=== PATIENT | female | born 1985 | race Two or more races ===

== ENCOUNTER 2018-11-06 19:44 | Emergency (ER) | payer OTHER ==
--- NOTE | 2018-11-06 20:27 | ED Physician Documentation ---
History of Present Illness - Stated complaint Stated Complaint: FEVER,CHILLS - Chief complaint Chief Complaint: Fever - History obtained from History obtained from: Patient - Additonal information Additional information: Patient is a 33-year-old female 7 days from vaginal presenting with fever and chills. Patient reports that she had felt chills prior to her giving , as well as days following. However, fever was first documented last night. Patient does note that her was complicated by gestational hypertension and concern for preeclampsia. Patient delivered at 39 weeks. Patient reports that she did have episiotomy. Patient denies headache, shortness of breath, productive cough, chest pain, abdominal pain, nausea, vomiting, urinary changes or breast pain/skin changes. Patient also had epidural and denies any complications such as back pain or wound infection. Patient also denies any significant vaginal pain or other pelvic pain, as well as any increas e in vaginal bleeding. Patient states that vaginal bleeding has decreased appropriately. Patient does report mild persistent foot swelling that she had not present during her and shortly thereafter. She also states that she was suffering from constipation over the past week or so and manually disimpacted herself with a gloved hand yesterday and subsequently has had normal bowel movement. No other improving or worsening factors noted. Review of Systems Constitutional: reports: Fever, Chills Cardiac: denies: Chest pain / pressure Respiratory: denies: Dyspnea, Cough GI: denies: Abdominal Pain, Nausea, Vomiting, Constipation, Diarrhea : denies: Dysuria, Vaginal bleeding Skin: denies: Rash Musculoskeletal: denies: Neck pain, Back pain, Extremity pain PD PAST MEDICAL HISTORY - Past Medical History Past Medical History: No Cardiovascular: None Respiratory: None Neuro: None Endocrine/Autoimmune: None GI: None CARDIOVASCULAR OPERATING ROOM NURSE: None : None HEENT: None Psych: None Musculoskeletal: None Derm: None - Past Surgical History Past Surgical History: No - Present Medications Home Medications: Ambulatory Orders Medication Instructions Recorded Confirmed Dicloxacillin [Dynapen] 500 mg PO Q6H 14 Days capsule 11/06/18 - Allergies Allergies/Adverse Reactions: Allergies Allergy/AdvReac Type Severity Reaction Status Date / Time No Known Drug Allergies Allergy Verified 11/06/18 20:00 - Social History Does the pt smoke?: Yes Smoking Status: Current every day smoker Does the pt drink ETOH?: No Does the pt have substance abuse?: No - Immunizations Immunizations are current?: Yes - POLST Patient has POLST: No PD ED PE NORMAL - Vitals Vital signs reviewed: Yes - General General: Alert and oriented X 3, No acute distress, Well developed/nourished - HEENT HEENT: Atraumatic, Moist mucous membranes, Pharynx benign - Neck Neck: Supple, no meningeal sign, No bony TTP - Cardiac Cardiac: RRR, No murmur - Respiratory Respiratory: No respiratory distress, Clear bilaterally - Abdomen Abdomen: Normal bowel sounds, Soft, Non tender, Non distended - Back Back: No spinal TTP - Derm Derm: Normal color, Warm and dry, No rash - Extremities Extremities: No deformity, No tenderness to palpate. No: No edema (Mild non pitting edema to feet bilaterally) - Psych Psych: Normal mood, Normal affect Results - Vitals Vitals: Vital Signs - 24 hr 11/06/18 11/06/18 11/06/18 19:55 20:16 21:30 Temperature 39.0 C H 39.4 C H 38.0 C H Heart Rate 120 H Respiratory 18 Rate Blood Pressure 141/84 H O2 Saturation 100 11/06/18 22:03 Temperature 37.1 C Heart Rate 94 Respiratory 18 Rate Blood Pressure 115/68 O2 Saturation 100 Oxygen O2 Source Room air - Labs Labs: Laboratory Tests 11/06/18 11/06/18 11/06/18 20:25 20:25 20:25 WBC 11.1 H RBC 2.79 L Hgb 8.3 L Hct 25.7 L MCV 92.1 MCH 29.7 MCHC 32.3 RDW 14.9 Plt Count 478 H MPV 9.2 Neut # (Auto) 9.5 H Lymph # (Auto) 0.8 L [place] # (Auto) 0.6 Eos # (Auto) 0.1 Baso # (Auto) 0.0 Absolute Nucleated RBC 0.03 Nucleated RBC % 0.3 PT 13.0 H INR 1.2 APTT 28.4 Sodium 140 Potassium 3.6 Chloride 105 Carbon Dioxide 21 Anion Gap 14.0 H BUN 15 Creatinine 0.7 Estimated GFR (MDRD) 95 Glucose 120 H Lactic Acid Calcium 9.0 Total Bilirubin 0.5 AST 24 ALT 27 Alkaline Phosphatase 87 Total Protein 7.3 Albumin 3.3 Globulin 4.0 Albumin/Globulin Ratio 0.8 L Lipase 27 Urine Color Urine Clarity Urine pH Ur Specific [place] Urine Protein Urine Glucose (UA) Urine Ketones Urine Occult Blood Urine Nitrite Urine Bilirubin Urine Urobilinogen Ur Leukocyte Esterase Urine RBC Urine WBC Ur Squamous Epith Cells Urine Bacteria Ur Microscopic Review Urine Culture Comments 11/06/18 11/06/18 20:25 20:47 WBC RBC Hgb Hct MCV MCH MCHC RDW Plt Count MPV Neut # (Auto) Lymph # (Auto) [place] # (Auto) Eos # (Auto) Baso # (Auto) Absolute Nucleated RBC Nucleated RBC % PT INR APTT Sodium Potassium Chloride Carbon Dioxide Anion Gap BUN Creatinine Estimated GFR (MDRD) Glucose Lactic Acid 1.8 Calcium Total Bilirubin AST ALT Alkaline Phosphatase Total Protein Albumin Globulin Albumin/Globulin Ratio Lipase Urine Color YELLOW Urine Clarity CLEAR Urine pH 5.5 Ur Specific [place] <=1.005 Urine Protein NEGATIVE Urine Glucose (UA) NEGATIVE Urine Ketones NEGATIVE Urine Occult Blood SMALL H Urine Nitrite NEGATIVE Urine Bilirubin NEGATIVE Urine Urobilinogen 0.2 (NORMAL) Ur Leukocyte Esterase TRACE H Urine RBC 0-5 Urine WBC 0-3 Ur Squamous Epith Cells NONE SEEN Urine Bacteria None Seen Ur Microscopic Review INDICATED Urine Culture Comments Cancelled PD MEDICAL DECISION MAKING - ED course Complexity details: reviewed results, re-evaluated patient, considered differential, d/w patient, d/w family, d/w sap solution manager consultant ED course: Patient is 1 week vaginal delivery presenting with fever and chills without specific other complaints. Patient did have epidural but denies symptoms that would raise high suspicion for encephalitis, meningitis, epidural abscess. Epidural injection site unremarkable on exam. Patient also had episiotomy, but denies new pelvic or vaginal pain and vaginal bleeding has nearly subsided. Lower suspicion for cellulitis, abscess, or other infection involving the episiotomy site or endometritis, although considered. Patient denies complaints would raise high suspicion for UTI, pneumonia, renal disease, or other intra-abdominal pathology, but again considered. Patient is breast- feeding and has had no issues with such breasts do not reflect evidence of inf ection or mastitis. Do not find evidence of HELLP syndrome, DIC, or other acute complication related to the or period this time.Blood cultures, as well as lab work and urinalysis obtained. Urine culture also ordered. Patient started on fluid bolus as well as given 1 g of Tylenol given concern for sepsis and fever of unknown source.Screening lab work returned relatively unremarkable with only extremely mild leukocytosis and no elevation of lactic acid. H&H decreased, but as expected with recent vaginal delivery and patient had noted she lost a larger amount of blood. Do not feel this is related to today's complaints. Remainder of lab work relatively unremarkable. Urinalysis did have presence of leukocyte esterase only, but no obvious signs of infection. Empiric antibiotics of Rocephin given. Will be vitally indicated appropriate decrease in heart rate and effervescence. Contacted BUSINESS COORDINATOR on-call who evaluated patient in the ED.BUSINESS COORDINATOR for patient was experiencing mastitis and requested Dicloxacillin to be given in the ED.BUSINESS COORDINATOR otherwise feels patient is appropriate to discharge home with close follow-up tomorrow. Patient amenable to this plan. Departure - Departure Disposition: 01 Home, Self Care Clinical Impression: Mastitis Condition: Good Instructions: ED Breast Infec Follow-Up: your,doctor [Other] - Tomorrow Prescriptions: Dicloxacillin [Dynapen] 500 mg PO Q6H 14 Days capsule Comments: Please take antibiotics as prescribed. Please follow-up with your BUSINESS COORDINATOR provider tomorrow. May continue breast-feeding. Recommend use of Tylenol only for fever control. Please return to ED sooner if expands worsening symptoms or have other concerns.
[2018-11-06] MEDS ORDERED: SODIUM CHLORIDE 0.9% 2,000 ML IV ONE (20:28)
[2018-11-06] MEDS ORDERED: ACETAMINOPHEN 1,000 MG/100 ML 100 ML IV STA (20:28)
[2018-11-06 20:41] LABS: BASOPHILS % (AUTO) 0.3 %; EOSINOPHILS # (AUTO) 0.1 10^3/uL (0.0-0.7); EOSINOPHILS % (AUTO) 0.5 %; HGB - HEMOGLOBIN 8.3 g/dL (12.0-16.0); LYMPHOCYTES # (AUTO) 0.8 10^3/uL (1.5-3.5); LYMPHOCYTES % (AUTO) 7.6 %; MEAN CORPUSCULAR HEMOGLOBIN 29.7 pg (27.0-31.0); MEAN CORPUSCULAR HGB CONC 32.3 g/dL (32.0-36.0); MEAN CORPUSCULAR VOLUME 92.1 fL (81.0-99.0); MEAN PLATELET VOLUME 9.2 fL (7.9-10.8); MONOCYTES # (AUTO) 0.6 10^3/uL (0.0-1.0); MONOCYTES % (AUTO) 5.8 %; NEUTROPHILS # (AUTO) 9.5 10^3/uL (1.5-6.6); NEUTROPHILS % (AUTO) 85.1 %; PLT - PLATELET COUNT 478 10^3/uL (130-450); RED BLOOD COUNT 2.79 10^6/uL (4.20-5.40); RED CELL DISTRIBUTION WIDTH 14.9 % (12.0-15.0); WHITE BLOOD COUNT 11.1 x10^3/uL (4.8-10.8)
[2018-11-06 20:45] LABS: INR 1.2 (0.8-1.2)
[2018-11-06 20:53] LABS: PARTIAL THROMBOPLASTIN TIME 28.4 secs (24.9-33.3)
[2018-11-06 21:00] LABS: BILIRUBIN,URINE NEGATIVE (NEGATIVE); GLUCOSE, URINE (UA) NEGATIVE (NEGATIVE); KETONES,URINE (UA) NEGATIVE (NEGATIVE); LEUKOCYTE ESTERASE, URINE TRACE (NEGATIVE); NITRITE,URINE NEGATIVE (NEGATIVE); OCCULT BLOOD,URINE SMALL (NEGATIVE); PH,URINE 5.5 PH (5.0-7.5); PROTEIN,URINE NEGATIVE (NEGATIVE); UROBILINOGEN,URINE 0.2 (NORMAL) E.U./dL (NORMAL)
[2018-11-06 21:01] LABS: BILIRUBIN,TOTAL 0.5 mg/dL (0.2-1.0); CREATININE 0.7 mg/dL (0.4-1.0)
[2018-11-06 21:02] LABS: ALBUMIN 3.3 g/dL (3.2-5.5); ALBUMIN/GLOBULIN RATIO 0.8 (1.0-2.2); TOTAL PROTEIN 7.3 g/dL (6.7-8.2)
[2018-11-06 21:03] LABS: CLARITY,URINE CLEAR (CLEAR)
[2018-11-06] MEDS ORDERED: cefTRIAXone 2 GM in SODIUM CHLORIDE 0.9% MINIBAG 100 ML IV STA (21:09)
[2018-11-06 21:11] LABS: BACTERIA,URINE None Seen /HPF (None Seen); RBC,URINE 0-5 /HPF (0-5); SQUAMOUS EPITHELIAL CELL,UR NONE SEEN (<= Few)
[2018-11-06] MEDS ORDERED: DICLOXACILLIN 250 MG CAPSULE PO STA (23:14)
--- NOTE | 2018-11-06 23:30 | CONSULTATION NOTE ---
Referring Provider Name of Referring Provider:: Dr. Linda Barros Consult Date: 11/06/18 Chief Complaint - Chief Complaint Chief Complaint: Post fever History of Present Illness - Admitted From Admitted From:: ER - History Obtained From Records Reviewed: unavailable History obtained from: patient - History of Present Illness HPI Comment/Other: Ms Manzanares is a 33 yo GxP1 one week after vaginal delivery. was generally uncomplicated. She reports having elevated blood pressures at 36 weeks but was not diagnosed with GHTN or preeclampsia. She was noted to have BPs n the 180s/90s per 's report. She had an epidural for pain management. AROM at 8.5 cm and then rapid progression to delivery. She pushed for about 1 hour. Appears to have had a second degree laceration. PPH wth EBL of 1000 mL. FOB reports observing OB performing manual sweep of the uterus; patient cannot recall. Post course generally uncomplicated. Constipation relieved with manual disimpaction and enema. Reports lochia to be foul smelling but no abdominal pain. Decreased pelvic sensation with regard to urge to stool and void. and pumping. Has been experiencing chills and rigors. Febrile temp today to 104 degrees F. No back pain/dysuria/pelvic pain/N/V. Has tender mass in lateral aspect of right breast. Had received IVF, acetaminophen, and rocephin at this presentation. Had been febrile to 39C and tachycardic to the 120s at arrival, now resolving. Mld PUENTE behind her eyes and breast pain upon questioning. History - Past Medical History Cardiovascular: reports: None (PMH: unremarkable) Respiratory: reports: None Neuro: reports: None Endocrine/Autoimmune: reports: None GI: reports: None PRIVATE SECTOR EXECUTIVE: reports: None : reports: None HEENT: reports: None Psych: reports: None Musculoskeletal: reports: None Derm: reports: None MRSA Hx?: No - Past Surgical History General: reports: Other (vaginal laceration repair) - Family & Social History Social History Notes: Lives in [place] with , Preston, and son. [facility]. Originally from . No TREV, social EtOH prior to - Substance History Use: Uses substance without health or social issues: NONE - POLST Patient has POLST: No Meds/Allgy - Home Medications Home Medications: Ambulatory Orders Medication Instructions Recorded Confirmed Dicloxacillin [Dynapen] 500 mg PO Q6H 14 Days capsule 11/06/18 - Allergies Allergies/Adverse Reactions: Allergies Allergy/AdvReac Type Severity Reaction Status Date / Time No Known Drug Allergies Allergy Verified 11/06/18 20:00 Review of Systems - Other Findings Other Findings: As per HPI, remaining systems negative. Exam - Vital Signs Vital Signs: Vital Signs x48h Temp Pulse Resp BP Pulse Ox 11/06/18 22:03 98.8 F 94 18 115/68 100 11/06/18 21:30 100.4 F H 11/06/18 20:16 102.9 F H 11/06/18 19:55 102.2 F H 120 H 18 141/84 H 100 - Physical Exam General Appearance: positive: No acute distress Neck: positive: Nml inspection, Thyroid nml, Other (No LAD) Respiratory: positive: Chest non-tender, No respiratory distress Cardiovascular: positive: Regular rate & rhythm, Other (Tachycardia resolved by time of exam) Abdomen: positive: Non-tender, No distention, Other (Mild TTP to deep palp in RLQ, not reproducible on repeat exam. No fundal tenderness or suprapubc tenderness) Back: positive: Nml inspection, Other (No SVA tenderness) Skin: positive: Color nml Neurologic/Psychiatric: positive: Oriented x3, Mood/affect nml Comments/Other: PELVIC: Vaginal laceration repair without warmth, induration, tenderness. Sutures intact with normal inspection and minimal friability. Lochia wnl for volume and odor. No cervcical britton tenderness or uterine tenderness. BREAST: Lactating bilaterally. Non-fluctuant mass n lateral aspect of right br east, TTP. Moderately engorged ductal tissue bilaterally but no other areas of TTP. Non-erythematous. Mld warmth at area of tenderness. Conclusion/Plan - Diagnosis Diagnosis: Lacatational mastitis - Plan Plan: Mastitis: Rx for dicloxacilln 500 mg po Q6H for 14 days provided Continue and pumping, no restrictions for infant Reviewed import of draining the breast and use of warm compresses and massage Given a dose of rocephin on arrival and one dose of dicloxacillin prior to discharge Reviewed warning signs UA normal for lochia Exam benign for endometritis, pyelonephritis. Ovarian vein thrombosis less concerning given high suspicion for LM. Also, INR 1.2 CONSTIPATION: Discussed bowel regimen Recommend daily use of stool softeners with as needed use of laxatives Discussed avoidance of tachyphylaxis with regular use of laxatives Provided Rx for docusate and senna ANEMIA: HCT 25 after reported PPH -Recommend iron repletion once bowel regimen established FU with [facility] Thank you for including me in the care of this patient. Total time with patient was 30 min, of whch more than 50% was in face to face nurses' association counselor. - Lab Results Lab results reviewed: Yes Fish Bones: 11/06/18 20:25 11/06/18 20:25
[2018-11-06 23:44] VITALS: BP 119/94
== END 2018-11-07 00:09 | disposition home or self-care (01) ==
LOC: ED 19:44
DX: O91.23 Nonpurulent mastitis associated with lactation (principal); O99.335 Smoking (tobacco) complicating the puerperium
CPT/HCPCS: 36415; 80053; 81001; 83605; 83690; 85025; 85610; 85730; 87040; 87086; 96361; 96365; 96367; 99283; 99284; A9270; J0131; 81003

== ENCOUNTER 2019-03-24 16:59 | Emergency (ER) | payer OTHER ==
[2019-03-24 17:41] LABS: BASOPHILS # (AUTO) 0.1 10^3/uL (0.0-0.1); BASOPHILS % (AUTO) 0.6 %; EOSINOPHILS % (AUTO) 0.2 %; HGB - HEMOGLOBIN 14.3 g/dL (12.0-16.0); LYMPHOCYTES # (AUTO) 1.9 10^3/uL (1.5-3.5); LYMPHOCYTES % (AUTO) 22.9 %; MEAN CORPUSCULAR HEMOGLOBIN 27.7 pg (27.0-31.0); MEAN CORPUSCULAR VOLUME 83.8 fL (81.0-99.0); MEAN PLATELET VOLUME 9.7 fL (7.9-10.8); MONOCYTES # (AUTO) 0.6 10^3/uL (0.0-1.0); MONOCYTES % (AUTO) 6.6 %; NEUTROPHILS # (AUTO) 5.8 10^3/uL (1.5-6.6); NEUTROPHILS % (AUTO) 69.5 %; PLT - PLATELET COUNT 316 10^3/uL (130-450); RED BLOOD COUNT 5.17 10^6/uL (4.20-5.40); RED CELL DISTRIBUTION WIDTH 14.8 % (12.0-15.0); WHITE BLOOD COUNT 8.3 x10^3/uL (4.8-10.8)
[2019-03-24 17:45] LABS: BILIRUBIN,URINE NEGATIVE (NEGATIVE); GLUCOSE, URINE (UA) NEGATIVE (NEGATIVE); KETONES,URINE (UA) NEGATIVE (NEGATIVE); LEUKOCYTE ESTERASE, URINE NEGATIVE (NEGATIVE); NITRITE,URINE NEGATIVE (NEGATIVE); OCCULT BLOOD,URINE NEGATIVE (NEGATIVE); PROTEIN,URINE NEGATIVE (NEGATIVE); UROBILINOGEN,URINE 0.2 (NORMAL) E.U./dL (NORMAL)
[2019-03-24 17:46] LABS: CLARITY,URINE CLEAR (CLEAR); HCG UR QUAL NEGATIVE
[2019-03-24 17:54] LABS: ALBUMIN 4.4 g/dL (3.2-5.5); ALBUMIN/GLOBULIN RATIO 1.2 (1.0-2.2); BILIRUBIN,TOTAL 0.7 mg/dL (0.2-1.0); CALCIUM 9.7 mg/dL (8.5-10.3); CREATININE 0.7 mg/dL (0.4-1.0)
[2019-03-24] MEDS ORDERED: ACETAMINOPHEN 325 MG TABLET PO STA (18:07)
--- NOTE | 2019-03-24 18:09 | ED Physician Documentation ---
History of Present Illness - Stated complaint Stated Complaint: LLQ ABD PX - Chief complaint Chief Complaint: Abd Pain - History obtained from History obtained from: Patient, Family - History of Present Illness Timing: How many days ago (2) Pain level max: 8 Pain level now: 4 Improved by: nothing Worsened by: nothing - Additonal information Additional information: L pelvic pain x 2 days. similar pain 1 month ago. no cause found. No vaginal bleeding or discharge.Patient is 5 months from a normal spontaneous vaginal delivery. She did have granulation tissue that was not healing correctly and had to be cauterized. She also had mastitis shortly after delivery. She states she has not restarted her menses yet. Review of Systems Constitutional: denies: Fever, Chills Nose: denies: Rhinorrhea / runny nose, Congestion Throat: denies: Sore throat Cardiac: denies: Chest pain / pressure Respiratory: denies: Cough GI: denies: Nausea, Vomiting, Diarrhea : denies: Dysuria, Frequency, Hesitancy, Unable to Void, Hematuria, Discharge, Vaginal bleeding, Now EGA Skin: denies: Rash Musculoskeletal: denies: Neck pain, Back pain Neurologic: denies: Headache PD PAST MEDICAL HISTORY - Past Medical History Cardiovascular: None (PMH: unremarkable) Respiratory: None Neuro: None Endocrine/Autoimmune: None GI: None EDUCATIONAL MANAGER: None : None HEENT: None Psych: None Musculoskeletal: None Derm: None - Past Surgical History Past Surgical History: No General: Other (vaginal laceration repair) - Present Medications Home Medications: Ambulatory Orders Medication Instructions Recorded Confirmed Dicloxacillin [Dynapen] 500 mg PO Q6H 14 Days capsule 11/06/18 Hydrocodone/Acetaminophen 1 - 2 each PO Q6H PRN #14 tablet 03/24/19 [Hydrocodon-Acetaminophen 5-325] - Allergies Allergies/Adverse Reactions: Allergies Allergy/AdvReac Type Severity Reaction Status Date / Time No Known Drug Allergies Allergy Verified 03/24/19 17:14 - Social History Does the pt smoke?: Yes Smoking Status: Current every day smoker Does the pt drink ETOH?: No Does the pt have substance abuse?: No - Immunizations Immunizations are current?: Yes - POLST Patient has POLST: No PD ED PE NORMAL - Vitals Vital signs reviewed: Yes - General General: Alert and oriented X 3, No acute distress, Well developed/nourished - HEENT HEENT: PERRL, Moist mucous membranes - Neck Neck: Supple, no meningeal sign - Cardiac Cardiac: RRR, Strong equal pulses - Respiratory Respiratory: No respiratory distress, Clear bilaterally - Abdomen Abdomen: Normal bowel sounds, Soft, Non tender, Non distended - Female Female : Pt declined - Back Back: No spinal TTP - Derm Derm: Warm and dry - Extremities Extremities: No edema - Neuro Neuro: Alert and oriented X 3 - Psych Psych: Normal mood, Normal affect Results - Vitals Vitals: Vital Signs - 24 hr 03/24/19 03/24/19 17:14 20:36 Temperature 36.6 C Heart Rate 80 76 Respiratory 16 16 Rate Blood Pressure 117/78 116/76 O2 Saturation 96 100 Oxygen O2 Source Room air - Labs Labs: Laboratory Tests 03/24/19 03/24/19 03/24/19 17:35 17:35 17:39 WBC 8.3 RBC 5.17 Hgb 14.3 Hct 43.3 MCV 83.8 MCH 27.7 MCHC 33.0 RDW 14.8 Plt Count 316 MPV 9.7 Neut # (Auto) 5.8 Lymph # (Auto) 1.9 [place] # (Auto) 0.6 Eos # (Auto) 0.0 Baso # (Auto) 0.1 Absolute Nucleated RBC 0.00 Nucleated RBC % 0.0 Sodium 142 Potassium 4.1 Chloride 105 Carbon Dioxide 28 Anion Gap 9.0 BUN 10 Creatinine 0.7 Estimated GFR (MDRD) 95 Glucose 103 H Calcium 9.7 Total Bilirubin 0.7 AST 17 ALT 16 Alkaline Phosphatase 64 Total Protein 8.0 Albumin 4.4 Globulin 3.6 Albumin/Globulin Ratio 1.2 Lipase 28 Urine Color LT. YELLOW Urine Clarity CLEAR Urine pH 8.0 H Ur Specific [place] 1.010 Urine Protein NEGATIVE Urine Glucose (UA) NEGATIVE Urine Ketones NEGATIVE Urine Occult Blood NEGATIVE Urine Nitrite NEGATIVE Urine Bilirubin NEGATIVE Urine Urobilinogen 0.2 (NORMAL) Ur Leukocyte Esterase NEGATIVE Ur Microscopic Review NOT INDICATED Urine Culture Comments NOT INDICATED Urine HCG, Qual 03/24/19 17:39 WBC RBC Hgb Hct MCV MCH MCHC RDW Plt Count MPV Neut # (Auto) Lymph # (Auto) [place] # (Auto) Eos # (Auto) Baso # (Auto) Absolute Nucleated RBC Nucleated RBC % Sodium Potassium Chloride Carbon Dioxide Anion Gap BUN Creatinine Estimated GFR (MDRD) Glucose Calcium Total Bilirubin AST ALT Alkaline Phosphatase Total Protein Albumin Globulin Albumin/Globulin Ratio Lipase Urine Color Urine Clarity Urine pH Ur Specific [place] 1.010 Urine Protein Urine Glucose (UA) Urine Ketones Urine Occult Blood Urine Nitrite Urine Bilirubin Urine Urobilinogen Ur Leukocyte Esterase Ur Microscopic Review Urine Culture Comments Urine HCG, Qual NEGATIVE - Rads (name of study) Pelvic ultrasound Radiology: Prelim report reviewed, EMP read contemporaneously, See rad report (. Uterus and bilateral ovaries appear within normal limits. 2. 3.8 cm cystic lesion in the left adnexal space without internal vascularity is of unclear etiology. This could reflect an exophytic left ovarian cyst or possibly paraovarian cyst. Correlation with prior studies if available suggested. Short interval follow-up ultrasound in 6 weeks could be obtained for reassessment. 3. No free pelvic fluid.. ) PD MEDICAL DECISION MAKING - ED course Complexity details: reviewed results, re-evaluated patient, considered differential, d/w patient ED course: Patient appears to have a left side cyst near her ovary. This may be the cause of her pain. Otherwise normal laboratory testing. She is very well-appearing, nontoxic. Afebrile. No evidence of ureteral stone. We will have her follow-up with her doctor for further care and a repeat ultrasound in 6 weeks. Patient counseled regarding signs and symptoms for which I believe and urgent re- evaluation would be necessary. Patient with good understanding of and agreement to plan and is comfortable going home at this time This document was made in part using voice recognition software. While efforts are made to proofread this document, sound alike and grammatical errors may occur. Departure - Departure Disposition: 01 Home, Self Care Clinical Impression: Ovarian cyst Qualifiers: Laterality: left Qualified Code(s): N83.202 - Unspecified ovarian cyst, left side Condition: Good Instructions: ED Cyst Ovarian Follow-Up: Rowena Solano MD [Primary Care Provider] - Within 1 week Prescriptions: Hydrocodone/Acetaminophen [Hydrocodon-Acetaminophen 5-325] 1 - 2 each PO Q6H PRN #14 tablet PRN Reason: pain Comments: You should have a repeat ultrasound in approximately 6 weeks for reassessment of the left cystic structure next year ovary. Return if you worsen. Follow-up with your doctor for further care. Do not drink alcohol or drive while on narcotic pain medicine. Note that many narcotic pain relievers also contain tylenol/acetaminophen. Please ensure that your total dose of acetaminophen from all sources does not exceed 3 grams (3000mg) per day. You may constipated on this medication, take a stool softener such as "Colace" twice a day while you are on it. Also recommend a [id number] laxative such as senna or MiraLAX any day that you do not have a bowel movement. If you received narcotic pain medication in the emergency department, do not drive or operate machinery for the next 24 hours. IMPRESSION: 1. Uterus and bilateral ovaries appear within normal limits. 2. 3.8 cm cystic lesion in the left adnexal space without internal vascularity is of unclear etiology. This could reflect an exophytic left ovarian cyst or possibly paraovarian cyst. Correlation with prior studies if available suggested. Short interval follow-up ultrasound in 6 weeks could be obtained for reassessment. 3. No free pelvic fluid.. Discharge Date/Time: 03/24/19 20:35
--- NOTE | 2019-03-24 19:52 | Ultrasound Report ---
Reason: pelvic pain Procedure Date: 03/24/2019 Accession Number: [id number] / [id number] Procedure: US - Pelvic w/Doppler Complete CPT Code: Final Report FULL RESULT: EXAM: PELVIC ULTRASOUND EXAM DATE: 03/24/2019 07:32 PM. CLINICAL HISTORY: Pelvic pain. COMPARISON: None. TECHNIQUE: Realtime transabdominal pelvic scan performed to identify the uterus and adnexa and as an overview of other pelvic structures, with static image documentation. Transvaginal imaging was not performed FINDINGS: Uterus: 8.4 x 3.2 x 5 cm, volume 73 cc. Anteverted position. Normal overall size and echotexture. Masses: None. Endometrium: 2.6 mm. Normal. Cervix: Unremarkable. Right Ovary: 2.5 x 1.3 x 1.9 cm, volume 3.2 cc. Normal echotexture and Doppler flow. Left Ovary: 2.7 x 1.9 x 1.8 cm, volume 4.8 cc. Normal echotexture and Doppler flow. 1.6 cm left ovarian functional cyst is seen. Free Fluid: None. Other: Additional 3.8 x 2.9 x 2.8 cm cystic structure in the left adnexal space of unclear etiology. No internal vascularity is seen within this cystic lesion. IMPRESSION: 1. Uterus and bilateral ovaries appear within normal limits. 2. 3.8 cm cystic lesion in the left adnexal space without internal vascularity is of unclear etiology. This could reflect an exophytic left ovarian cyst or possibly paraovarian cyst. Correlation with prior studies if available suggested. Short interval follow-up ultrasound in 6 weeks could be obtained for reassessment. 3. No free pelvic fluid.. RADIA
[2019-03-24 20:39] VITALS: BP 116/76
== END 2019-03-24 20:35 | disposition home or self-care (01) ==
LOC: ED 16:59
DX: N83.202 Unspecified ovarian cyst, left side (principal); F17.200 Nicotine dependence, unspecified, uncomplicated
CPT/HCPCS: 36415; 76856; 80053; 81003; 81025; 83690; 85025; 93975; 99284; A9270; 81001; 87086

== ENCOUNTER 2019-07-21 13:18 | Emergency (ER) | payer OTHER ==
[2019-07-21 13:49] LABS: BILIRUBIN,URINE NEGATIVE (NEGATIVE); GLUCOSE, URINE (UA) NEGATIVE (NEGATIVE); KETONES,URINE (UA) NEGATIVE (NEGATIVE); LEUKOCYTE ESTERASE, URINE NEGATIVE (NEGATIVE); NITRITE,URINE NEGATIVE (NEGATIVE); OCCULT BLOOD,URINE NEGATIVE (NEGATIVE); PROTEIN,URINE NEGATIVE (NEGATIVE); UROBILINOGEN,URINE 0.2 (NORMAL) E.U./dL (NORMAL)
[2019-07-21 13:51] LABS: CLARITY,URINE CLEAR (CLEAR); HCG UR QUAL NEGATIVE
[2019-07-21] MEDS ORDERED: IBUPROFEN 800 MG TABLET PO STA (13:54)
--- NOTE | 2019-07-21 13:58 | ED Physician Documentation ---
History of Present Illness - Stated complaint Stated Complaint: FEMALE - Chief complaint Chief Complaint: Abd Pain - History obtained from History obtained from: Patient - History of Present Illness Timing: Other (This is a very pleasant 34-year-old woman who is about 8 months . In late she started to have episodic severe rectal pain sometimes associated with defecation, sometimes not. Since then she has had it about monthly. Last maybe 24 hours at a time during which she has several spasms of the severe pain that stop her in her tracks. She is having this now and this is her main presenting complaint, but unlike the previous episodes she has had it for 3 days now as opposed to her usual single day. She also has ongoing pelvic pressure, has a known 3.5 cm left ovarian cyst and is worried that it might of ruptured. She denies possibility of , dizziness, fever, vaginal discharge, fatigue. 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 07/21/19 - Allergies Allergies/Adverse Reactions: Allergies Allergy/AdvReac Type Severity Reaction Status Date / Time No Known Drug Allergies Allergy Verified 07/21/19 13:27 - Social History Does the pt smoke?: Yes Smoking Status: Current every day smoker Does the pt drink ETOH?: No Does the pt have substance abuse?: No - Immunizations Immunizations are current?: Yes - POLST Patient has POLST: No PD ED PE NORMAL - Vitals Vital signs reviewed: Yes - General General: Alert and oriented X 3, No acute distress - Abdomen Abdomen: Soft, Non tender - Female Female : Other (Digital rectal exam done with Tiffanie WORRELL present and chaperoning. She is a little skin tag on the left side, but it is not tender. No fissures or internal or external hemorrhoids. No gross blood or mass.) - Neuro Neuro: Alert and oriented X 3, Normal speech Results - Vitals Vitals: Vital Signs - 24 hr 07/21/19 07/21/19 13:27 16:05 Temperature 37.0 C Heart Rate 96 70 Respiratory 15 16 Rate Blood Pressure 119/75 119/86 H O2 Saturation 99 100 Oxygen O2 Source Room air - Labs Labs: Laboratory Tests 07/21/19 07/21/19 07/21/19 13:35 13:57 13:57 WBC 10.3 RBC 4.58 Hgb 13.5 Hct 40.5 MCV 88.4 MCH 29.5 MCHC 33.3 RDW 13.1 Plt Count 362 MPV 9.7 Neut # (Auto) 7.3 H Lymph # (Auto) 2.0 [place] # (Auto) 0.9 Eos # (Auto) 0.0 Baso # (Auto) 0.0 Absolute Nucleated RBC 0.00 Nucleated RBC % 0.0 Sodium 141 Potassium 3.7 Chloride 104 Carbon Dioxide 26 Anion Gap 11.0 BUN 12 Creatinine 0.7 Estimated GFR (MDRD) 95 Glucose 93 Calcium 9.6 Total Bilirubin 0.7 AST 14 ALT 13 Alkaline Phosphatase 51 Total Protein 8.4 H Albumin 4.3 Globulin 4.1 Albumin/Globulin Ratio 1.0 Lipase 23 Urine Color YELLOW Urine Clarity CLEAR Urine pH 6.0 Ur Specific Anna 1.025 Urine Protein NEGATIVE Urine Glucose (UA) NEGATIVE Urine Ketones NEGATIVE Urine Occult Blood NEGATIVE Urine Nitrite NEGATIVE Urine Bilirubin NEGATIVE Urine Urobilinogen 0.2 (NORMAL) Ur Leukocyte Esterase NEGATIVE Ur Microscopic Review NOT INDICATED Urine Culture Comments NOT INDICATED Urine HCG, Qual NEGATIVE - Rads (name of study) Pelvic sono Radiology: Final report received (see disch instructions) PD MEDICAL DECISION MAKING - ED course ED course: This is a very pleasant 34-year-old woman who has had ongoing intermittent proctalgia consistent with fugax. For this she is given Rectiv. Her physical examination there is normal. She also has left pelvic pressure, not severe pain and she only wanted ibuprofen for it. Over the course the last 4 months or so this complicated left ovarian cyst has increased in size slightly mandating close gynecologic follow-up. This was discussed extensively with the patient and she voices understanding. Departure - Departure Disposition: 01 Home, Self Care Clinical Impression: Proctalgia fugax, Complex cyst of left ovary Condition: Good Record reviewed to determine appropriate education?: Yes Instructions: ED Cyst Ovarian Prescriptions: Nitroglycerin [Rectiv] 1 inch RC BID PRN #1 oint...g. PRN Reason: Rectal Pain Comments: As discussed, on March 26, 2019 the cystic lesion in your left adnexa measured 3.8 x 2.9 x 2.8 cm. Today the complex solid and cystic lesion now measures 4.7 x 3.7 x 3.9 cm. 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 Potentially laparoscopy or other advanced imaging. Talk to her on Tuesday. Discharge Date/Time: 07/21/19 16:07
[2019-07-21 14:07] LABS: BASOPHILS % (AUTO) 0.4 %; EOSINOPHILS % (AUTO) 0.2 %; HGB - HEMOGLOBIN 13.5 g/dL (12.0-16.0); LYMPHOCYTES % (AUTO) 19.2 %; MEAN CORPUSCULAR HEMOGLOBIN 29.5 pg (27.0-31.0); MEAN CORPUSCULAR HGB CONC 33.3 g/dL (32.0-36.0); MEAN CORPUSCULAR VOLUME 88.4 fL (81.0-99.0); MEAN PLATELET VOLUME 9.7 fL (7.9-10.8); MONOCYTES # (AUTO) 0.9 10^3/uL (0.0-1.0); NEUTROPHILS # (AUTO) 7.3 10^3/uL (1.5-6.6); NEUTROPHILS % (AUTO) 70.8 %; PLT - PLATELET COUNT 362 10^3/uL (130-450); RED BLOOD COUNT 4.58 10^6/uL (4.20-5.40); RED CELL DISTRIBUTION WIDTH 13.1 % (12.0-15.0); WHITE BLOOD COUNT 10.3 x10^3/uL (4.8-10.8)
[2019-07-21 14:19] LABS: ALBUMIN 4.3 g/dL (3.2-5.5); BILIRUBIN,TOTAL 0.7 mg/dL (0.2-1.0); CALCIUM 9.6 mg/dL (8.5-10.3); CREATININE 0.7 mg/dL (0.4-1.0); TOTAL PROTEIN 8.4 g/dL (6.7-8.2)
--- NOTE | 2019-07-21 15:35 | Ultrasound Report ---
Reason: pelvic pain, L known cyst Procedure Date: 07/21/2019 Accession Number: [id number] / [id number] Procedure: US - Pelvic w/Transvag+Doppler Comp CPT Code: Final Report FULL RESULT: EXAM: PELVIC ULTRASOUND WITH DOPPLERS CLINICAL HISTORY: Pelvic pain, L known cyst. COMPARISON: PEL NON OB W/TV DOP 03/24/2019 7:01 PM TECHNIQUE: Realtime transabdominal imaging performed to identify the uterus and adnexa and as an overview of other pelvic structures, followed by transvaginal imaging for better assessment of the endometrium and adnexa, with static image documentation. Color flow imaging and Doppler spectral analysis was performed to evaluate blood flow to the ovaries given pelvic pain and clinical concern for ovarian torsion. FINDINGS: Uterus: 7.4 x 4.0 x 5.8 cm, volume 92 cc. Anteverted position. Normal overall size and echotexture. Masses: None. Endometrium: 6 mm. There is a tiny calcification. Otherwise normal. Cervix: Unremarkable. Right Ovary: 3.3 x 1.8 x 1.7 cm, volume 5 cc. Normal echotexture. Arterial and venous blood flow are present. PSV 6.3 cm/sec. RI 0.6. Adnexa are unremarkable. Left Ovary: 3.3 x 2.0 x 2.8 cm, volume 9.6 cc. Normal echotexture. Adjacent to the inferior aspect of the left ovary and likely attached to the ovary is a solid and cystic lesion measuring 4.7 x 2.7 x 3.8 cm. No vascularity within the solid component. Arterial and venous blood flow are present. PSV 9.2 cm/sec. RI 0.5. Free Fluid: Trace Other: None. IMPRESSION: 1. Complex left paraovarian solid and cystic lesion measures 4.7 x 3.7 x 3.9 cm. Follow-up ultrasound in 8-12 weeks recommended to evaluate for resolution. 2. No ovarian torsion. RADIA
[2019-07-21 16:06] VITALS: BP 119/86
== END 2019-07-21 16:07 | disposition home or self-care (01) ==
LOC: ED 13:18
DX: K59.4 Anal spasm (principal); N83.292 Other ovarian cyst, left side; F17.200 Nicotine dependence, unspecified, uncomplicated
CPT/HCPCS: 36415; 76830; 76856; 80053; 81003; 81025; 83690; 85025; 93975; 99283; A9270; 81001; 87086

== ENCOUNTER 2019-08-21 07:21 | Outpatient (CLI) | payer OTHER ==
[2019-08-21] MEDS ORDERED: GADOBUTROL 7.5 MMOL/7.5 ML VIAL ONE (07:40)
[2019-08-21] MEDS ORDERED: GADOBUTROL 7.5 MMOL/7.5 ML VIAL IVP ONE (08:38)
--- NOTE | 2019-08-21 13:50 | MRI Report ---
Reason: DISORDERS OF UTERUS Procedure Date: 08/21/2019 Accession Number: [id number] / [id number] Procedure: MRI - Pelvis W/WO CPT Code: Final Report FULL RESULT: EXAM: MR PELVIS WITH AND WITHOUT CONTRAST (MR FEMALE PELVIS) EXAM DATE: 08/21/2019 09:00 AM. CLINICAL HISTORY: Left adnexal cyst seen on ultrasound, increased in size. Please assess. COMPARISON: PEL NON OB W/TV DOP 07/21/2019 2:07 PM PEL NON OB W/TV DOP 03/24/2019 7:01 PM. TECHNIQUE: Multiplanar breath-hold T1, T2 and DWI sequences obtained through the pelvis on an MR scanner. Images obtained before and after administration of 6 cc of Gadavist intravenous contrast. FINDINGS: Reproductive Organs: Uterus: The uterus is anteverted and measures 6.8 x 3.7 x 6.3 cm with volume 82.4 cc. The endometrial stripe measures 4 mm. No uterine masses. Cervical mucosal contour is unremarkable. Right Ovary: The right ovary measures 2.8 x 1.7 x 2.5 cm. Normal follicles are present in the right ovary. Left Ovary: The left ovary measures 2.8 x 2.0 x 2.8 cm. Adjacent to the left ovary and slightly medial, seen best on axial image 19 series 501 is a T2 hyperintense 2.8 x 2.4 x 2.5 cm lesion with slight shading seen on the T2-weighted sequences although largely hyperintense on the T2 and T1-weighted precontrast images and on the T2-weighted sequences has an area of heterogeneity along its inferior aspect seen on image 13 series 601, although associated findings on the T1-weighted sequences. This area measures up to 1.3 cm. Postcontrast no clear evidence for focal enhancing mass or lesion is evident. This may be exophytic arising from the left ovary or represent a left paraovarian cystic lesion. Bowel: Included portions of the small bowel and colon are unremarkable. No pelvic free fluid. No pelvic adenopathy. Bladder: Urinary bladder is mildly to moderately distended and unremarkable. Other: Mild lumbar facet arthropathy. No other osseous abnormalities. IMPRESSION: 1. Left adnexal 2.8 x 2.4 x 2.5 cm cystic lesion measured on the recent ultrasound from 07/21/2019, 4.7 x 2.7 x 3.8 cm with the cystic component seen on the ultrasound measuring 2.8 x 3.2 x 3.2 cm which corresponds with the cystic lesion seen in the left adnexa on the current study. On the recent ultrasound the lesion was described as cystic and solid and measured on the ultrasound from 03/24/2019 measured 3.8 x 2.9 x 2.8 cm. The cystic lesion appears to be either exophytic or paraovarian along the left adnexa and favored to be paraovarian with features most likely representing an endometrioma, less likely hemorrhagic cyst. No enhancing septations or nodules are identified. Consider other follow-up pelvic ultrasound continued surveillance in 3 months and/or gynecological consultation. 2. Normal MR appearance of the uterus and right ovary. RADIA
== END 2019-08-21 07:22 | disposition home or self-care (01) ==
LOC: DI 07:21
PROVIDERS: ATTEND Obstetrics & Gynecology
DX: N85.8 Other specified noninflammatory disorders of uterus (principal)
CPT/HCPCS: 72197; A9585

== ENCOUNTER 2020-07-14 10:56 | Outpatient (CLI) | payer OTHER ==
--- NOTE | 2020-07-15 13:29 | Ultrasound Report ---
LIMITED ULTRASOUND OF RIGHT BREAST: 07/14/2020 CLINICAL: Patient returns today to evaluate a focal asymmetry in the right breast. Comparison is made to exam dated: 07/14/2020 mammogram - [facility]. Color flow and real-time ultrasound of the right breast 11 o'clock region were performed on the areas of interest. There is a benign 0.4 cm x 0.1 cm x 0.4 cm oval cyst in the right breast at 11 o'clock middle depth. This oval cyst is anechoic with a well-defined boundary and posterior acoustic enhancement. This co rrelates with mammography findings. Color flow imaging demonstrates that there is no vascularity pre sent. IMPRESSION: BENIGN There is no sonographic evidence of malignancy. The 0.4 cm x 0.1 cm x 0.4 cm oval cyst in the right breast is consistent with a simple cyst and is be nign. A screening mammogram in 3 years is recommended. This exam was interpreted at Station ID: [id number]. Electronically Signed By: Martinez Kelley M.D. ddp/:07/14/2020 13:57:31 Ultrasound BI-RADS: 2 Benign BI-RADS CATEGORY: (2) - 2 Mammogram [id number] 3 year screening LATERALITY: (B)
--- NOTE | 2020-07-15 13:29 | Ultrasound Report ---
LIMITED ULTRASOUND OF LEFT BREAST: 07/14/2020 CLINICAL: Occasional left breast pain. Comparison is made to exams dated: 07/14/2020 ultrasound and 07/14/2020 mammogram - [facility]. Color flow and real-time ultrasound of the left breast 1 o'clock and 8 o'clock regions were performe d on the areas of interest. There is a 0.6 cm x 0.3 cm x 0.6 cm oval mass with a circumscribed margin in the left breast at 3 o'c lock middle depth. This oval mass is hypoechoic with a well-defined boundary and posterior acoustic enhancement. This correlates as palpated. Color flow imaging demonstrates that there is no vascular ity present. IMPRESSION: PROBABLY BENIGN The 0.6 cm x 0.3 cm x 0.6 cm oval mass in the left breast has a differential diagnosis of a complicat ed cyst, a lymph node, or a fibroadenoma and is probably benign. A follow-up ultrasound in 6 months is recommended. There are no abnormalities seen in the left breast to correspond with the pain at 1 and 8 o'clock, ho wever, clinical followup is recommended. A follow-up ultrasound in 6 months is recommended to demonstrate stability. This exam was interpreted at Station ID: [id number]. Electronically Signed By: Martinez Kelley M.D. ddp/:07/14/2020 13:56:07 Ultrasound BI-RADS: 3 Probably benign BI-RADS CATEGORY: (3) - 3 Ultrasound [id number] 6 month follow-up LATERALITY: (B)
--- NOTE | 2020-07-15 13:29 | Mammography Report ---
BILATERAL DIGITAL DIAGNOSTIC MAMMOGRAM 3D/2D: 07/14/2020 CLINICAL: Diffuse left breast pain. Baseline exam. No prior exams were available for comparison. The tissue of both breasts is heterogeneously dense. T his may lower the sensitivity of mammography. There is an oval low density focal asymmetry with an indistinct and circumscribed margin in the right breast at 11 o'clock middle depth. No other significant masses, calcifications, or other findings are seen in either breast. IMPRESSION: INCOMPLETE: NEEDS ADDITIONAL IMAGING EVALUATION The oval low density focal asymmetry in the right breast is indeterminate. An ultrasound is recommen ded. There is no abnormality seen in the left breast to correspond with the palpable abnormality at 9 o'cl ock, however, ultrasound is recommended. There is no abnormality seen in the left breast to correspond with the pain at 8 o'clock, however, ul trasound is recommended. There is no abnormality seen in the left breast to correspond with the pain at 1 o'clock, however, ul trasound is recommended. Ultrasound will be performed immediately following the current exam. This exam was interpreted at Station ID: [id number]. NOTE: For mammograms, a report in lay terms will be sent to the patient. Approximately 15% of breast malignancies will not be visualized mammographically. In the management of a palpable breast mass, a negative mammogram must not discourage biopsy of a clinically suspicious lesion. Electronically Signed By: Martinez Kelley M.D. ddp/:07/14/2020 13:54:00 ACR BI-RADS Category 0: Incomplete 3340F PARENCHYMAL PATTERN: (D) - The breast(s) demonstrate(s) heterogeneously dense fibroglandular darby davalos. BI-RADS CATEGORY: (0) - 0 Ultrasound [id number] Immediate follow-up LATERALITY: (B)
== END 2020-07-14 10:57 | disposition home or self-care (01) ==
LOC: DI 10:56
PROVIDERS: ATTEND Student in an Organized Health Care Education/Training Program
DX: N64.4 Mastodynia (principal); N60.01 Solitary cyst of right breast

== ENCOUNTER 2023-12-15 11:44 | Emergency (ER) | payer OTHER ==
[2023-12-15 11:59] VITALS: O2SAT 100
--- NOTE | 2023-12-15 12:25 | ED Physician Documentation ---
PD HPI FEMALE - Stated complaint Stated Complaint: - Chief complaint Chief Complaint: Abd Pain - Additional information Additional information: 38-year-old female with history of a complex vaginal delivery that happened over 5 years ago presents emergency department for concerns of a vaginal prolapse. Patient was seen by [facility] nurse practitioner a couple days ago who informed her that she has a vaginal prolapse and told her "it was past the point of Kegels and if she should have set up is just going to keep falling back out again." Patient feels quite frustrated says that she is going to be traveling tomorrow and is sick of "waddling" and would like to speak with [facility] for emergency [place] because she is afraid that her organs are falling out of her body. She has no abdominal pain no vaginal discharge that is malodorous no fevers or chills no new pain. 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 07/21/19 - Allergies Allergies/Adverse Reactions: Allergies Allergy/AdvReac Type Severity Reaction Status Date / Time No Known Drug Allergies Allergy Verified 12/15/23 11:52 - Social History Does the pt smoke?: Yes Smoking Status: Current every day smoker Does the pt drink ETOH?: No Does the pt have substance abuse?: No - Immunizations Immunizations are current?: Yes - POLST Patient has POLST: No PD ED PE NORMAL - Vitals Vital signs reviewed: Yes - General General: Alert and oriented X 3, Well developed/nourished, Other - Abdomen Abdomen: Normal bowel sounds, Soft, Non tender, No organomegaly - Female Female : Pt declined PD ED PE EXPANDED - Psych Psych: Tearful, Anxious Results - Vitals Vitals: Vital Signs - 24 hr 12/15/23 11:53 Temperature 36.6 C Heart Rate 73 Respiratory 15 Rate Blood Pressure 130/83 H O2 Saturation 100 Oxygen O2 Source Room air PD Medical Decision Making - ED course ED course: 38-year-old female presents emergency department for concerns of vaginal prolapse that she was diagnosed with 2 days ago she is traveling tomorrow and said that they are not able to get her in for a very long time. I reach out to Dr. Garcia, on-call [facility] who is gracious enough to come down and speak with the patient at bedside. Patient is adamant that she would like a exam by [facility] and so he said that if she would like to do [id number] pay he would be willing to see her in office today. Patient will be discharged and will go to [facility] for vaginal exam declining to have vaginal exam done by ER provider. Departure - Departure Disposition: 01 Home, Self Care Clinical Impression: Vaginal prolapse Instructions: Pelvic Organ Prolapse Nonsurg Tx Comments: Dr. Garcia has been gracious enough to see you for a same-day visit you can head down to his office where they will perform an exam. Forms: PCP List
[2023-12-15 13:21] VITALS: BP 124/77
== END 2023-12-15 13:13 | disposition home or self-care (01) ==
LOC: ED 11:44
DX: N81.10 Cystocele, unspecified (principal); F17.200 Nicotine dependence, unspecified, uncomplicated
CPT/HCPCS: 99281; 99283